=== PATIENT | female | born 1945 | race Caucasian/White ===

== ENCOUNTER 2016-08-21 10:52 | Outpatient (CLI) | payer MEDICARE ==
[2016-08-21 12:27] LABS: #Eosinphils 0.1 thou/uL (0.0-0.7); #Lymphocytes 1.4 thou/uL (1.20-3.40); #Monocytes 0.3 thou/uL (0.11-0.59); #Neutrophils 2.4 thou/uL (1.40-6.50); %Basophils 1.1 % (0.0-1.0); %Eosinophils 2.6 % (0.0-10.0); %Monocytes 6.6 % (0.0-10.0); %Neutrophils 55.7 % (42.0-75.0); Hemoglobin 13.3 g/dL (12.0-16.0); Mean Corpuscular HGB CONC 31.8 g/dL (32.0-36.0); Mean Corpuscular Hemoglobin 29.9 pg (27.0-31.0); Mean Corpuscular Volume 94.2 fl (81.0-99.0); Mean Platelet Volume 6.8 fL (7.4-10.4); Platelet Count 276 thou/uL (130-400); RBC Distribution Width 12.8 % (11.5-14.5); Red Blood Cell (RBC) Count 4.43 mill/uL (4.20-5.40); White Blood Cell (WBC) Count 4.2 thou/uL (4.8-10.8)
[2016-08-21 12:35] LABS: ALT (SGPT) 16 U/L (0-55); AST (SGOT) 22 U/L (5-34); Albumin 4.3 g/dL (3.4-4.8); Alkaline Phosphatase 52 U/L (40-150); Anion Gap 13 mmol/L (10-20); BUN (Urea Nitrogen) 12 mg/dL (9.8-20.1); Bilirubin, Direct 0.1 mg/dL (0.1-0.3); Bilirubin, Total 0.3 mg/dL (0.2-1.2); Calc. Creatinine Clearance 0 mL/min (70-130); Calcium 9.4 mg/dL (7.8-10.44); Carbon Dioxide 26 mmol/L (23-31); Cardiac Risk 3.3 (Less than 4.5); Chloride 101 mmol/L (98-107); Cholesterol 260 mg/dL (< 200 Desired); Estimated GFR-MDRD 65; Glucose 85 mg/dL (80-115); HDL Cholesterol 80 mg/dL (>60 Neg Risk); LDL Cholesterol, Calculated 159 mg/dL; Potassium 4.2 mmol/L (3.5-5.1); Sodium 136 mmol/L (136-145); Triglycerides 107 mg/dL (Less than 150)
[2016-08-21 12:54] LABS: Hemoglobin A1c 5.3 % (4.0-6.0)
== END 2016-08-21 10:53 | disposition home or self-care (01) ==
LOC: NAVSJIPCSP 10:52
PROVIDERS: ATTEND Family Medicine
DX: E78.00 Pure hypercholesterolemia, unspecified (principal); E03.9 Hypothyroidism, unspecified; R26.81 Unsteadiness on feet; Z79.899 Other long term (current) drug therapy
CPT/HCPCS: 36415; 80048; 80061; 80076; 83036; 84443; 85025

== ENCOUNTER 2016-09-29 11:56 | Outpatient (CLI) | payer MEDICARE ==
[2016-09-29 13:50] LABS: Iron 88 ug/dL (50-170)
[2016-09-30 18:09] LABS: Iron Binding Capacity, Total 319 mcg/dL (265-497)
== END 2016-09-29 11:57 | disposition home or self-care (01) ==
LOC: NAVSJIPCSP 11:56
PROVIDERS: ATTEND Family Medicine
DX: D50.9 Iron deficiency anemia, unspecified (principal)
CPT/HCPCS: 36415; 82728; 83540; 83550

== ENCOUNTER 2016-12-22 11:10 | Outpatient (CLI) | payer MEDICARE ==
[2016-12-22 12:47] LABS: #Basophils 0.1 thou/uL (0.0-0.2); #Eosinphils 0.1 thou/uL (0.0-0.7); #Lymphocytes 1.5 thou/uL (1.20-3.40); #Monocytes 0.2 thou/uL (0.11-0.59); #Neutrophils 2.6 thou/uL (1.40-6.50); %Basophils 1.4 % (0.0-1.0); %Eosinophils 2.7 % (0.0-10.0); %Lymphocytes 33.1 % (21.0-51.0); %Monocytes 5.2 % (0.0-10.0); %Neutrophils 57.7 % (42.0-75.0); Hemoglobin 13.1 g/dL (12.0-16.0); Mean Corpuscular HGB CONC 31.7 g/dL (32.0-36.0); Mean Corpuscular Hemoglobin 28.5 pg (27.0-31.0); Mean Corpuscular Volume 89.8 fl (81.0-99.0); Mean Platelet Volume 6.4 fL (7.4-10.4); Platelet Count 259 thou/uL (130-400); Red Blood Cell (RBC) Count 4.61 mill/uL (4.20-5.40); White Blood Cell (WBC) Count 4.5 thou/uL (4.8-10.8)
[2016-12-22 13:27] LABS: Hemoglobin A1c 5.1 % (4.0-6.0)
[2016-12-22 13:28] LABS: ALT (SGPT) 13 U/L (8-55); AST (SGOT) 20 U/L (5-34); Albumin 4.3 g/dL (3.4-4.8); Alkaline Phosphatase 60 U/L (40-150); Anion Gap 18 mmol/L (10-20); BUN (Urea Nitrogen) 11 mg/dL (9.8-20.1); Bilirubin, Direct 0.2 mg/dL (0.1-0.3); Bilirubin, Total 0.4 mg/dL (0.2-1.2); Calc. Creatinine Clearance 0 mL/min (70-130); Calcium 9.5 mg/dL (7.8-10.44); Carbon Dioxide 20 mmol/L (23-31); Chloride 103 mmol/L (98-107); Cholesterol 254 mg/dl (< 200 Desired); Estimated GFR-MDRD 69; Glucose 96 mg/dL (80-115); HDL Cholesterol 85 mg/dL (>60 Neg Risk); LDL Cholesterol, Calculated 149 mg/dL; Potassium 4.6 mmol/L (3.5-5.1); Protein, Total 7.3 g/dL (6.0-8.3); Sodium 136 mmol/L (136-145); Triglycerides 102 mg/dL (Less than 150)
== END 2016-12-22 11:11 | disposition home or self-care (01) ==
LOC: NAVSJIPCSP 11:10
PROVIDERS: ATTEND Family Medicine
DX: E03.9 Hypothyroidism, unspecified (principal); E78.00 Pure hypercholesterolemia, unspecified; K21.9 Gastro-esophageal reflux disease without esophagitis; R25.1 Tremor, unspecified; F32.9 Major depressive disorder, single episode, unspecified; Z79.899 Other long term (current) drug therapy
CPT/HCPCS: 36415; 80048; 80061; 80076; 83036; 84443; 85025

== ENCOUNTER 2018-02-18 11:49 | Outpatient (CLI) | payer MEDICARE ==
--- NOTE | 2018-02-18 14:33 | RAD ---
LEFT KNEE FOUR VIEWS: History: 72-year-old female with acute left knee pain which started yesterday. FINDINGS/IMPRESSION: Tricompartment degenerative and osteoarthrosis changes most marked involving the medial compartment w ithout fracture, dislocation, or other acute process. POS: [facility]
== END 2018-02-18 11:50 | disposition home or self-care (01) ==
LOC: NAV RAD 11:49
PROVIDERS: ATTEND Nurse Practitioner Adult Health
DX: M25.562 Pain in left knee (principal); M17.12 Unilateral primary osteoarthritis, left knee

== ENCOUNTER 2018-09-15 16:56 | Outpatient (CLI) | payer MEDICARE ==
--- NOTE | 2018-09-15 17:12 | RAD ---
Right hip 2 views History hip pain COMPARISON: None FINDINGS: No acute fracture or subluxation is evident. There is mild degenerative arthrosis of the ri ght hip. IMPRESSION: No acute osseous abnormality.
--- NOTE | 2018-09-15 17:33 | RAD ---
Lumbar spine 3 views: 09/15/2018 COMPARISON: None HISTORY: Low back pain FINDINGS: There is disc space narrowing and anterior osteophyte formation at T11-12, L1-2, and L4-5. No acute fracture or evidence of dislocation. Multilevel lower lumbar spine facet hypertrophy present. No anterolisthesis or retrolisthesis. IMPRESSION: Degenerative changes of the lumbar spine. No acute osseous abnormality. If there are radi cular symptoms, follow-up MRI suggested.
== END 2018-09-15 16:57 | disposition home or self-care (01) ==
LOC: NAV RAD 16:56
PROVIDERS: ATTEND Family Medicine
DX: M54.5 Low back pain (principal); M25.551 Pain in right hip; M47.816 Spondylosis without myelopathy or radiculopathy, lumbar region
CPT/HCPCS: 72100

== ENCOUNTER 2018-12-18 13:07 | Emergency (ER) | payer MEDICARE ==
[2018-12-18 13:28] LABS: #Eosinphils 0.1 thou/uL (0.0-0.7); #Lymphocytes 1.6 thou/uL (1.20-3.40); #Monocytes 0.3 thou/uL (0.11-0.59); #Neutrophils 3.7 thou/uL (1.40-6.50); %Basophils 0.8 % (0.0-1.0); %Eosinophils 1.9 % (0.0-10.0); %Lymphocytes 27.6 % (21.0-51.0); %Monocytes 5.5 % (0.0-10.0); %Neutrophils 64.2 % (42.0-75.0); Hemoglobin 12.7 g/dL (12.0-16.0); Mean Corpuscular Hemoglobin 30.4 pg (27.0-31.0); Mean Platelet Volume 6.5 fL (7.4-10.4); Platelet Count 252 thou/uL (130-400); RBC Distribution Width 12.6 % (11.5-14.5); Red Blood Cell (RBC) Count 4.18 mill/uL (4.20-5.40); White Blood Cell (WBC) Count 5.7 thou/uL (4.8-10.8)
[2018-12-18 13:50] LABS: ALT (SGPT) 12 U/L (8-55); AST (SGOT) 25 U/L (5-34); Albumin 4.3 g/dL (3.4-4.8); Alkaline Phosphatase 72 U/L (40-150); Anion Gap 16 mmol/L (10-20); BUN (Urea Nitrogen) 15 mg/dL (9.8-20.1); Bilirubin, Total 0.7 mg/dL (0.2-1.2); Calc. Creatinine Clearance 0 mL/min (70-130); Calcium 9.4 mg/dL (7.8-10.44); Carbon Dioxide 25 mmol/L (23-31); Chloride 97 mmol/L (98-107); Estimated GFR-MDRD 59; Globulin 2.9 g/dL (2.4-3.5); Glucose 119 mg/dL (83-110); Potassium 4.1 mmol/L (3.5-5.1); Protein, Total 7.2 g/dL (6.0-8.3); Sodium 134 mmol/L (136-145)
--- NOTE | 2018-12-18 14:00 | CT ---
CT BRAIN WITHOUT CONTRAST: Date: 12/18/18 HISTORY: Dizziness. FINDINGS: No evidence of acute infarct, hemorrhage, midline shift, or abnormal extra-axial fluid collections ar e seen. The ventricular size is appropriate and the basilar cisterns are patent. The bony calvarium i s intact. The visualized paranasal sinuses and mastoid air cells are well aerated. IMPRESSION: No CT evidence of acute intracranial process. POS: [facility]
[2018-12-18] MEDS ORDERED: Aspirin Chewable 81 MG TAB ONE (14:05)
[2018-12-18 14:21] LABS: Bilirubin Negative (Negative); Blood, Urine Negative (Negative); Clarity Clear (Clear); Glucose, Urine (Dipstick) Negative (Negative); Leukocyte Small (Negative); Nitrite Negative (Negative); Protein, Urine (Dipstick) Negative (Neg-Trace)
[2018-12-18 14:26] LABS: Bacteria/HPF None Seen HPF (None Seen); RBC/HPF None Seen HPF (0-3); Squamous Epithelial 0-3 HPF (0-3); WBC/HPF None Seen HPF (0-3)
== END 2018-12-18 14:35 | disposition short-term general hospital (02) ==
LOC: NAV ERS 13:07
DX: R42 Dizziness and giddiness (principal); R47.81 Slurred speech; F32.9 Major depressive disorder, single episode, unspecified; E03.9 Hypothyroidism, unspecified; Z79.899 Other long term (current) drug therapy
CPT/HCPCS: 36416; 70450; 80053; 81003; 81015; 82550; 84484; 85025; 93005

== ENCOUNTER 2020-06-24 16:11 | Outpatient (CLI) | payer MEDICARE ==
--- NOTE | 2020-06-24 16:32 | RAD ---
XR Hip Lt 2-3 View HISTORY: Left hip pain FINDINGS: No fracture or dislocation is identified.
--- NOTE | 2020-06-24 17:26 | RAD ---
SI JOINTS THREE VIEWS: History: SI joint and left hip pain. FINDINGS: Arthritic change of the lower lumbar spine and mild arthritic changes of both hips. There are also so me arthritic changes of both SI joints, slightly more prominent along the inferior margin of the left SI joint. No ankylosis or erosive type change. No evidence of fracture. IMPRESSION: Diffuse bony demineralization. Arthritic changes of the pelvis as above. POS: [id number]
== END 2020-06-24 16:12 | disposition home or self-care (01) ==
LOC: NAV RAD 16:11
PROVIDERS: ATTEND Family Medicine
DX: M25.552 Pain in left hip (principal); M47.816 Spondylosis without myelopathy or radiculopathy, lumbar region; M81.0 Age-related osteoporosis without current pathological fracture
CPT/HCPCS: 72202

== ENCOUNTER 2020-08-28 13:57 | Emergency (ER) | payer MEDICARE | END 2020-08-28 15:49 | disposition home or self-care (01) | LOC: NAV ERS 13:57 | DX: S52.571A Other intraarticular fracture of lower end of right radius, initial encounter for closed fracture (principal); E03.9 Hypothyroidism, unspecified; Z79.899 Other long term (current) drug therapy; W01.0XXA Fall on same level from slipping, tripping and stumbling without subsequent striking against object, initial encounter | CPT/HCPCS: 29125 ==

== ENCOUNTER 2021-08-14 18:37 | Outpatient (CLI) | payer MEDICARE | END 2021-08-14 18:38 | disposition home or self-care (01) | LOC: NAV RAD 18:37 | PROVIDERS: ATTEND Family Medicine | DX: M25.431 Effusion, right wrist (principal); M18.11 Unilateral primary osteoarthritis of first carpometacarpal joint, right hand; M19.041 Primary osteoarthritis, right hand; S62.306A Unspecified fracture of fifth metacarpal bone, right hand, initial encounter for closed fracture; M79.89 Other specified soft tissue disorders ==

== ENCOUNTER 2022-08-22 10:19 | Emergency (ER) | payer OTHER, MEDICARE | END 2022-08-22 12:32 | disposition home or self-care (01) | LOC: NAV ERS 10:19 | DX: S22.41XA Multiple fractures of ribs, right side, initial encounter for closed fracture (principal); W18.30XA Fall on same level, unspecified, initial encounter; Z79.82 Long term (current) use of aspirin | CPT/HCPCS: 99283 ==